=== PATIENT | female | born 1980 | race Hispanic/Latino ===

== ENCOUNTER 2016-05-09 08:32 | Emergency (ER) | payer BC ==
[2016-05-09 09:02] LABS: Basophils % (Auto) 1.1 % (0.0-1.8); Eosinophils % (Auto) 2.1 % (0.0-4.3); Hematocrit 40.5 % (30.3-42.9); Hemoglobin 13.3 gm/dl (10.1-14.3); Mean Corpuscular HGB Conc 33 % (30-34); Mean Corpuscular Hemoglobin 29 pg (28-32); Mean Corpuscular Volume 88 fl (79-97); Platelet Count 288 K/mm3 (140-440); Red Blood Count 4.58 M/mm3 (3.65-5.03); Red Cell Distribution Width 13.5 % (13.2-15.2); White Blood Count 6.1 K/mm3 (4.5-11.0)
[2016-05-09 09:19] LABS: Alanine Aminotransferase 33 units/L (7-56); Albumin 4.6 g/dL (3.9-5); Albumin/Globulin Ratio 1.7 %; Alkaline Phosphatase 106 units/L (35-129); Anion Gap 23 mmol/L; Bilirubin,Total 0.5 mg/dL (0.1-1.2); Blood Urea Nitrogen 7 mg/dL (7-17); Calcium 9.3 mg/dL (8.4-10.2); Carbon Dioxide 22 mmol/L (22-30); Glucose 92 mg/dL (65-100); Lipase 15 units/L (13-60); Potassium 3.8 mmol/L (3.6-5.0); Sodium 138 mmol/L (137-145); Total Protein 7.3 g/dL (6.3-8.2)
[2016-05-09 12:03] LABS: Bilirubin,Urine NEG (Negative); Blood,Urine NEG (Negative); Ketones,Urine 80 mg/dL (Negative); Leukocyte Esterase,Urine TR (Negative); Mucus,Urine 2+ /HPF; Nitrite,Urine NEG (Negative); Urobilinogen,Urine < 2.0 mg/dL (<2.0)
[2016-05-09] MEDS ORDERED: ZOFRAN IV ONE (16:19)
[2016-05-09] MEDS ORDERED: MORPHINE IV ONE ×2 (16:19→18:33)
[2016-05-09] MEDS ORDERED: NACL 0.9% 1000 ML 1,000 ML IV ONE ×2 (16:22→17:50)
--- NOTE | 2016-05-09 16:22 | Emergency Department Report ---
HPI - General Chief Complaint: Abdominal Pain Time Seen by Provider: 05/09/16 15:57 - HPI HPI: This is a 36-year-old female presents to the emergency department with a 2 day history of nausea, vomiting and generalized abdominal pain. On top of this, the patient says that her GJ tube was unable to be flushed and there might be a leak as when she attempted to do so "fluid went everywhere." She receives medications and all feeding through this tube. The surgery manager or surgeon she used to see was Dr. Mckeon, but she can no longer see them regarding the symptoms as "he does not take my insurance." She is not taking anything for symptoms prior to presentation. She has a history of gastroparesis, fibromyalgia, multiple sclerosis. No recent travel or sick contacts at home. ED Past Medical Hx - Past Medical History Previous Medical History?: Yes Hx Hypertension: No Hx Heart Attack/AMI: No Hx Congestive Heart Failure: No Hx Diabetes: No Hx Deep Vein Thrombosis: No Hx Liver Disease: No Hx Renal Disease: No Hx Arthritis: No Hx Seizures: No Hx Kidney Stones: No Hx Asthma: No Hx COPD: No Hx HIV: No Additional medical history: gastroporesis. fibromyalgia. MS - Surgical History Past Surgical History?: Yes Hx Pacemaker: No Additional Surgical History: g-tube. hysterectomy. cyst removal from ovaries - Social History Smoking Status: Never Smoker Substance Use Type: None - Medications Home Medications: Home Medications Medication Instructions Recorded Confirmed Last Taken Type Ondansetron [Zofran ODT TAB] 4 mg PO Q8HR 03/19/16 05/09/16 05/08/16 History Ondansetron [Zofran Odt] 4 mg PO Q8HR PRN #10 tab.rapdis 05/09/16 Unknown Rx Zolpidem [Ambien] 5 mg PO QHS PRN 05/09/16 05/09/16 05/07/16 History ED Review of Systems ROS: Stated complaint: ABD PAIN/TUBE LEAK Other details as noted in HPI Comment: All other systems reviewed and negative Constitutional: denies: chills, fever Eyes: denies: eye pain, eye discharge, vision change ENT: denies: ear pain, throat pain Respiratory: denies: cough, shortness of breath, wheezing Cardiovascular: denies: chest pain, palpitations Gastrointestinal: abdominal pain, nausea, vomiting Genitourinary: denies: urgency, dysuria, discharge Musculoskeletal: denies: back pain, joint swelling, arthralgia Skin: denies: rash, lesions Neurological: denies: headache, weakness, paresthesias Physical Exam - Physical Exam Vital Signs: Vital Signs 05/09/16 05/09/16 05/09/16 08:41 11:24 12:26 Temperature 98.6 F 98.1 F 97.8 F Pulse Rate 100 H 116 H 103 H Respiratory 18 18 18 Rate Blood Pressure 122/78 Blood Pressure 121/66 [Left] Blood Pressure 119/85 121/66 [Right] O2 Sat by Pulse 98 100 100 Oximetry Physical Exam: GENERAL: The patient is well-developed well-nourished. HEENT: Normocephalic. Atraumatic. Extraocular motions are intact. Patient has moist mucous membranes. Pupils equal reactive to light bilaterally. NECK: Supple. Trachea is midline. CHEST/LUNGS: Clear to auscultation. There is no respiratory distress noted. HEART/CARDIOVASCULAR: Regular. There is no tachycardia. There is no gallop rub or murmur. ABDOMEN: Abdomen is soft. Mild tenderness to palpation of the generalized abdomen. No guarding rebound tenderness. There is a GJ tube in place without any surrounding signs of infection and the tube appears to be in appropriate position. There is no abdominal distention. SKIN: There is no rash. Skin is warm and dry. NEURO: The patient is awake, alert, and oriented. The patient is cooperative. The patient has no focal neurologic deficits. The patient has normal speech. MUSCULOSKELETAL: There is no tenderness or deformity. There is no limitation range of motion. There is no evidence of acute injury. ED Course Vital Signs 05/09/16 05/09/16 05/09/16 08:41 11:24 12:26 Temperature 98.6 F 98.1 F 97.8 F Pulse Rate 100 H 116 H 103 H Respiratory 18 18 18 Rate Blood Pressure 122/78 Blood Pressure 121/66 [Left] Blood Pressure 119/85 121/66 [Right] O2 Sat by Pulse 98 100 100 Oximetry ED Medical Decision Making - Lab Data Result diagrams: 05/09/16 08:47 05/09/16 08:47 - Radiology Data Radiology results: image reviewed interpreted by me: Abdominal x-ray shows some hard stool throughout the intestines but there are no signs of intestinal dilation, obstruction or any acute process. G-tube study x-ray shows contrast in the jejunum and stomach showing appropriate position of the GJ tube. - Medical Decision Making This is a 36-year-old female with a history of gastroparesis, among other comorbidities, who presents with a few days of nausea, vomiting, abdominal pain. Patient's labs and unremarkable including no signs of leukocytosis, electrolyte abnormalities, renal insufficiency, glucose abnormalities. She also has normal belly labs including bilirubin, lipase and LFTs. Urinalysis does not show any urinary tract infection but does show 80 ketones showing some signs of dehydration. Patient was given pain medication, Zofran and 2 units of IV fluid resuscitation. The GJ tube was flushed and there was no difficulty or complication or obstruction seen. However the patient is convinced that it is "cut in half". The patient could not be convinced that the GJ tube was functioning appropriately so a G-tube study x-ray was done that showed contrast appropriately into the jejunum and gastric regions without any extravasation. Patient continue last for pain medication, however when the patient is monitored without her knowing from the back of the room she is resting comfortably and does not appear to be in any stress. As soon as she saw ER staff she starts asking for pain medication. I do believe that she has an exacerbation of her gastroparesis but there does not appear to be any significant acute process going on. Patient has not had any vomiting within the emergency department. She gets hydration and attrition from her G-tube. She was discharged home with some Zofran ODT and given referrals for both primary care and gastroenterology. I declined to give her any significant pain medication at this time as she already appears to have some signs of hard stool and increased stool volume and I think continued opiate use will only constipate her and her cause some type of obstruction. However she is encouraged to return to the emergency department with any worsening of her symptoms or any acute distress. - Differential Diagnosis constipation, gastroparesis, colitis, diverticulitis Critical Care Time: No Critical care attestation.: If time is entered above; I have spent that time in minutes in the direct care of this critically ill patient, excluding procedure time. ED Disposition Clinical Impression: Gastroparesis, Chronic pain disorder, Dehydration Abdominal pain Qualifiers: Abdominal location: generalized Qualified Code(s): R10.84 - Generalized abdominal pain Nausea & vomiting Qualifiers: Vomiting type: unspecified Vomiting Intractability: non-intractable Qualified Code(s): R11.2 - Nausea with vomiting, unspecified Disposition: DISCHARGED TO HOME OR SELFCARE Is pt being admited?: No Does the pt Need Aspirin: No Condition: Stable Instructions: Dehydration (ED), Acute Nausea and Vomiting (ED), Abdominal Pain (ED) Additional Instructions: Please follow-up with your primary care doctor and surgery manager. Return to the emergency department with any worsening of your symptoms or any acute distress. Prescriptions: Ondansetron [Zofran Odt] 4 mg PO Q8HR PRN #10 tab.rapdis PRN Reason: Nausea Referrals: PRIMARY CARE, [Primary Care Provider] - 3-5 Days BETH CALERO MD [Staff Physician] - 3-5 Days BERONICA SOUTH MD [Staff Physician] - 3-5 Days [facility] [Outside] - 3-5 Days Time of Disposition: 18:52
--- NOTE | 2016-05-09 18:44 | XRay Report ---
FINAL REPORT EXAM: XR G-TUBE STUDY HISTORY: Questionable malfunctioned g-tube TECHNIQUE: Two views of the abdomen before and after injection of oral contrast into a G-tube. PRIORS: None. FINDINGS: Film 1 shows a G-tube in place with the tip in the proximal stomach. The bowel gas pattern is normal. Film 2 shows opacification of the stomach, duodenum and proximal jejunum with oral contrast. The bones are unremarkable. IMPRESSION: Tip of G-tube is in the stomach. Oral contrast progressed into the proximal jejunum.
[2016-05-09 18:58] VITALS: BP 122/67
--- NOTE | 2016-05-10 09:03 | XRay Report ---
ABDOMEN RADIOGRAPHS INDICATION: Abdominal pain. COMPARISON: None similar. FINDINGS: Frontal supine and upright abdominal radiographs demonstrate cholecystectomy clips, NG tube and extrinsic EKG leads. No definite focal suspicious calcifications, pneumatosis or pneumoperitoneum. Clear left lung base, though imaged lungs overpenetrated on the upright view. Moderate stool throughout the colon and the rectosigmoid/possible constipation. Presumed extrinsic catheter-like density overlies the spine and sacrum. Unremarkable bones. CONCLUSION: Possible constipation without acute abdominal radiographic abnormality with few postsurgical changes noted, as described. Please correlate. Thank you for the opportunity to participate in this patient's care.
== END 2016-05-09 19:07 | disposition home or self-care (01) ==
LOC: ED 08:32
DX: K31.84 Gastroparesis (principal); E86.0 Dehydration; G89.29 Other chronic pain; F45.41 Pain disorder exclusively related to psychological factors; Z90.710 Acquired absence of both cervix and uterus; Z93.1 Gastrostomy status
CPT/HCPCS: 36415; 74000; 74020; 80053; 81001; 83690; 85025; 96361; 96374; 96375; 96376; 99284; J2270; J2405; J7030; Q9963

== ENCOUNTER 2016-05-11 16:54 | Emergency (ER) | payer BC ==
[2016-05-11] MEDS ORDERED: NACL 0.9% 1000 ML 1,000 ML IV ONE ×2 (17:29→22:08)
[2016-05-11 18:41] LABS: Basophils % (Auto) 0.6 % (0.0-1.8); Eosinophils % (Auto) 0.7 % (0.0-4.3); Hemoglobin 12.8 gm/dl (10.1-14.3); Mean Corpuscular HGB Conc 33 % (30-34); Mean Corpuscular Hemoglobin 29 pg (28-32); Mean Corpuscular Volume 89 fl (79-97); Platelet Count 204 K/mm3 (140-440); Red Blood Count 4.41 M/mm3 (3.65-5.03); Red Cell Distribution Width 13.5 % (13.2-15.2); White Blood Count 6.8 K/mm3 (4.5-11.0)
[2016-05-11 18:50] LABS: INR 1.35 (0.87-1.13)
[2016-05-11 18:51] LABS: Partial Thromboplastin Time 34.3 Sec. (24.2-36.6)
[2016-05-11 18:57] LABS: Alanine Aminotransferase 185 units/L (7-56); Albumin 4.1 g/dL (3.9-5); Albumin/Globulin Ratio 1.9 %; Alkaline Phosphatase 97 units/L (35-129); Bilirubin,Total 0.9 mg/dL (0.1-1.2); Blood Urea Nitrogen 6 mg/dL (7-17); Calcium 8.7 mg/dL (8.4-10.2); Carbon Dioxide 25 mmol/L (22-30); Glucose 133 mg/dL (65-100); Lipase 17 units/L (13-60); Total Protein 6.3 g/dL (6.3-8.2)
[2016-05-11 18:58] LABS: Anion Gap 18 mmol/L; Chloride 101.1 mmol/L (98-107); Potassium 3.1 mmol/L (3.6-5.0); Sodium 141 mmol/L (137-145)
[2016-05-11] MEDS ORDERED: MORPHINE IV ONE (22:01)
[2016-05-11] MEDS ORDERED: ZOFRAN IV ONE (22:01)
[2016-05-11] MEDS ORDERED: NACL ONE (22:05)
[2016-05-11] MEDS ORDERED: DILAUDID IV ONE (22:06)
--- NOTE | 2016-05-11 22:07 | Emergency Department Report ---
HPI - General Chief Complaint: GI Bleed Time Seen by Provider: 05/11/16 22:00 - HPI HPI: This is a 36-year-old female presents to the emergency department with the complaint of abdominal pain, nausea, vomiting, diarrhea. Patient mentioned that she also saw some blood in the emesis. Patient was here 2 days ago for similar symptoms. She has a past medical history of fibromyalgia and gastroparesis. She has a past surgical history of cholecystectomy and hysterectomy. The patient's primary care doctor is a Dr. Hernandez in [place] and he is out of the country through the end of the month but she went to see the physician community program assistant there yesterday and was told to come back to the emergency department. She is not been taken anything for symptoms prior to presentation. She was here 2 days ago and was prescribed some Zofran ODT but does not sound like that she has been taking it. No recent travel or sick contacts at home. ED Past Medical Hx - Past Medical History Hx Hypertension: No Hx Heart Attack/AMI: No Hx Congestive Heart Failure: No Hx Diabetes: No Hx Deep Vein Thrombosis: No Hx Liver Disease: No Hx Renal Disease: No Hx Arthritis: No Hx Seizures: No Hx Kidney Stones: No Hx Asthma: No Hx COPD: No Hx HIV: No Additional medical history: gastroporesis. fibromyalgia. MS - Surgical History Hx Pacemaker: No Additional Surgical History: g-tube. hysterectomy. cyst removal from ovaries - Social History Smoking Status: Never Smoker Substance Use Type: None - Medications Home Medications: Home Medications Medication Instructions Recorded Confirmed Last Taken Type Ondansetron [Zofran ODT TAB] 4 mg PO Q8HR 03/19/16 05/09/16 05/08/16 History Ondansetron [Zofran Odt] 4 mg PO Q8HR PRN #10 tab.rapdis 05/09/16 Unknown Rx Zolpidem [Ambien] 5 mg PO QHS PRN 05/09/16 05/09/16 05/07/16 History HYDROcodone/APAP 5-325 [[place] 1 each PO Q6HR PRN #10 tablet 05/12/16 Unknown Rx 5/325] Levofloxacin [Levaquin] 750 mg PO QDAY #7 tablet 05/12/16 Unknown Rx ED Review of Systems ROS: Stated complaint: VOMITING BLOOD Other details as noted in HPI Comment: All other systems reviewed and negative Constitutional: denies: chills, fever Eyes: denies: eye pain, eye discharge, vision change ENT: denies: ear pain, throat pain Respiratory: denies: cough, shortness of breath, wheezing Cardiovascular: denies: chest pain, palpitations Gastrointestinal: abdominal pain, nausea, vomiting, diarrhea Genitourinary: denies: urgency, dysuria, discharge Musculoskeletal: denies: back pain, joint swelling, arthralgia Skin: denies: rash, lesions Neurological: denies: headache, weakness, paresthesias Physical Exam - Physical Exam Vital Signs: Vital Signs 05/11/16 17:25 Temperature 97.4 F L Pulse Rate 115 H Respiratory 18 Rate Blood Pressure 117/82 O2 Sat by Pulse 96 Oximetry Physical Exam: GENERAL: The patient is well-developed well-nourished. HEENT: Normocephalic. Atraumatic. Extraocular motions are intact. Patient has moist mucous membranes. Pupils equal reactive to light bilaterally. NECK: Supple. Trachea is midline. CHEST/LUNGS: Clear to auscultation. There is no respiratory distress noted. HEART/CARDIOVASCULAR: Regular. There is no tachycardia. There is no gallop rub or murmur. ABDOMEN: Abdomen is soft. Mild generalized tenderness to palpation of the abdomen. There is a GJ tube in place. Patient has normal bowel sounds. There is no abdominal distention. SKIN: There is no rash. Skin is warm and dry. NEURO: The patient is awake, alert, and oriented. The patient is cooperative. The patient has no focal neurologic deficits. The patient has normal speech and gait. MUSCULOSKELETAL: There is no tenderness or deformity. There is no evidence of acute injury. ED Course Vital Signs 05/11/16 17:25 Temperature 97.4 F L Pulse Rate 115 H Respiratory 18 Rate Blood Pressure 117/82 O2 Sat by Pulse 96 Oximetry ED Medical Decision Making - Lab Data Result diagrams: 05/11/16 18:23 05/11/16 18:23 - Radiology Data Radiology results: report reviewed CT of the abdomen and pelvis with IV contrast shows a gastrostomy tube that is unchanged. There may be mild generalized thickening of the transverse colon and possible minimal thickening of parts of the descending colon and minimal generalized thickening of the sigmoid colon. These appear new or slightly increased from prior exam. This appeared thickening could be due to lack of distention, however a mild generalized colitis is not excluded. The bowel appears unremarkable otherwise. Considering lack of oral contrast. There is a small 1 cm periumbilical hernia containing fat. Possible small cyst in the left liver unchanged from prior scan. - Medical Decision Making 36-year-old female presents to the emergency department with complaint of some generalized abdominal pain, nausea and vomiting. Patient was just here for similar symptoms. However this time the patient has a few lab abnormalities as now she appears to have some transaminitis. She has stable vitals including being afebrile. There is no leukocytosis. However due to the transaminitis and continued abdominal discomfort, a CT scan of the abdomen and pelvis with IV contrast was done. It came back showing possible mild diffuse colitis but otherwise no acute process. Is given a dose of pain medication and antiemetics and is feeling much better. She did have some mild tachycardia when she first arrived in that resolved with pain control. Patient's colitis will be treated with some Levaquin and the patient will get a prescription for some pain medication. She still has Zofran from her last visit 2 days ago. She was given a referral for primary care and gastroenterology. Patient appears safe for discharge home. She will return to the ER with any worsening of her symptoms or any acute distress. - Differential Diagnosis gastroparesis, colitis, bowel obstruction, diverticulitis Critical Care Time: No Critical care attestation.: If time is entered above; I have spent that time in minutes in the direct care of this critically ill patient, excluding procedure time. ED Disposition Clinical Impression: Transaminitis, Colitis Abdominal pain Qualifiers: Abdominal location: generalized Qualified Code(s): R10.84 - Generalized abdominal pain Nausea & vomiting Qualifiers: Vomiting type: unspecified Vomiting Intractability: non-intractable Qualified Code(s): R11.2 - Nausea with vomiting, unspecified Disposition: DISCHARGED TO HOME OR SELFCARE Is pt being admited?: No Does the pt Need Aspirin: No Condition: Stable Instructions: Abdominal Pain (ED) Additional Instructions: You were seen today for your abdominal pain, nausea and vomiting. You did have a few abnormal labs as your liver function tests, AST and ALT, were elevated above normal. The CT scan showed a few incidental findings that I discussed with you but did not show a source of these abnormal labs. He will need to follow-up with a shactor helper for this reason, as well as your gastroparesis. I given the referrals for both primary care and gastroenterology. You will be started on antibiotics for a mild colitis, inflammation of your colon. You still should have Zofran from your last visit here. I've given use some pain medication. You've been prescribed a medication that is sedating. Therefore this medication cannot be mixed with alcohol, or taken prior to driving, working, or being responsible for children. Return to the emergency department with any intractable vomiting, intractable pain, or any acute distress. Prescriptions: HYDROcodone/APAP 5-325 [[place] 5/325] 1 each PO Q6HR PRN #10 tablet PRN Reason: Pain Levofloxacin [Levaquin] 750 mg PO QDAY #7 tablet Referrals: GERARDO CABEZAS MD [Primary Care Provider] - 3-5 Days JG HALL MD [Staff Physician] - 3-5 Days BERONICA SOUTH MD [Staff Physician] - 3-5 Days Time of Disposition: 01:16
--- NOTE | 2016-05-11 23:57 | Cat Scan Report ---
FINAL REPORT PROCEDURE: CT ABDOMEN PELVIS W CON TECHNIQUE: Computerized axial tomography of the abdomen and pelvis was performed after the IV injection of iodinated nonionic contrast. Oral contrast was not given HISTORY: Abd pain, hematemesis COMPARISON: Prior abdomen and pelvic CT scan of March 18, 2016 FINDINGS: Visualized lower thorax: There is minimal atelectasis in both lung bases. Liver: There is an oval well-defined roughly 1.1 centimeter hypodensity in the left lobe of liver unchanged from prior exam. This measures close to fluid density and could be a cyst but is nonspecific. A more subtle oval hypodensity in the anterior liver to the right of the falciform ligament noted. This is too small and subtle to characterize and therefore remains nonspecific. However it is unchanged from the prior exam and considering its typical location this could be an incidental area of focal fatty infiltration.. Spleen: Normal size and attenuation. Gallbladder and biliary system: Cholecystectomy. Pancreas: Normal. Adrenals: Normal. Kidneys: Normal. GI tract: A gastrostomy tube noted in the stomach extending into the duodenal and proximal jejunum similar to prior exam. The appendix is seen and appears normal. There is mild generalized thickening of the transverse colon and parts of the descending colon and sigmoid colon which is new or slightly greater than on prior exam. This could be due to lack of distention but I cannot exclude a mild generalize colitis. The bowel appears unremarkable otherwise when considering lack of oral contrast Lymph nodes and mesentery: Normal. Vasculature: Normal. Bladder: Normal. Reproductive organs: Normal. Peritoneum: No free fluid. Musculoskeletal structures: No significant abnormality. Other: There is a 1.0 centimeter periumbilical hernia containing fat only.. IMPRESSION: 1. Gastrostomy tube noted, unchanged. 2. There may be mild generalized thickening of the transverse colon and possible minimal thickening of parts of the descending colon and minimal generalized thickening of the sigmoid colon. These appear new or slightly increased from prior exam. This apparent thickening could be due to lack of distention. However a mild generalize colitis is not excluded. 3. The bowel appears unremarkable otherwise when considering lack of oral contrast. 4. There is a small 1.0 centimeter periumbilical hernia containing fat only. 5. Possible small cyst in left liver, unchanged from prior scan.
[2016-05-12] MEDS ORDERED: LEVAQUIN 750MG/150ML 750 MG/150 ML BAG IV ONE (00:19)
[2016-05-12] MEDS ORDERED: DILAUDID IV ONE (01:04)
[2016-05-12 01:25] VITALS: BP 111/73
== END 2016-05-12 01:49 | disposition home or self-care (01) ==
LOC: ED 16:54
DX: K52.9 Noninfective gastroenteritis and colitis, unspecified (principal); R74.0 Nonspecific elevation of levels of transaminase and lactic acid dehydrogenase [LDH]; Z90.710 Acquired absence of both cervix and uterus
CPT/HCPCS: 36415; 74177; 80053; 83690; 85025; 85610; 85730; 86850; 86900; 86901; 96361; 96365; 96366; 96375; 96376; 99284; J1170; J1956; J2405; J7030; Q9967

== ENCOUNTER 2017-02-27 11:31 | Inpatient (IN) | payer BC, MEDICAID ==
[2017-02-27 12:04] LABS: Hematocrit 42.3 % (30.3-42.9); Hemoglobin 13.8 gm/dl (10.1-14.3); Mean Corpuscular HGB Conc 33 % (30-34); Mean Corpuscular Hemoglobin 29 pg (28-32); Mean Corpuscular Volume 89 fl (79-97); Platelet Count 285 K/mm3 (140-440); Red Blood Count 4.76 M/mm3 (3.65-5.03); Red Cell Distribution Width 13.3 % (13.2-15.2); White Blood Count 5.3 K/mm3 (4.5-11.0)
[2017-02-27 12:10] LABS: Basophils % (Auto) 0.8 % (0.0-1.8); Eosinophils % (Auto) 0.9 % (0.0-4.3)
[2017-02-27 12:23] LABS: Anion Gap 22 mmol/L; BUN/Creatinine Ratio 20; Blood Urea Nitrogen 16 mg/dL (7-17); Calcium 9.5 mg/dL (8.4-10.2); Carbon Dioxide 23 mmol/L (22-30); Chloride 97.2 mmol/L (98-107); Glucose 112 mg/dL (65-100); Potassium 4.5 mmol/L (3.6-5.0); Sodium 138 mmol/L (137-145)
[2017-02-27] MEDS ORDERED: ZOFRAN IV ONE (14:34)
[2017-02-27] MEDS ORDERED: PLAVIX PO ONE (14:34)
[2017-02-27] MEDS ORDERED: MORPHINE IV ONE (14:34)
[2017-02-27] MEDS ORDERED: NITRO-BID 2% TP ONE (14:34)
--- NOTE | 2017-02-27 14:38 | Emergency Department Report ---
HPI - General Chief Complaint: Chest Pain Time Seen by Provider: 02/27/17 14:22 - HPI HPI: Room 1 The patient is a 37-year-old female presenting with a chief complaint chest pain and palpitations. The patient states for 1 month she has had intermittent tachycardia associated with left-sided chest pain. Patient describes chest pain as stabbing in nature and intermittent for one month. However the patient states for the past 2 days the pain has been constant. Patient was shortness of breath, diaphoresis and nausea without vomiting associated with her chest pain. The patient currently gives her pain score of 7/10. The patient states she's never had a stress test or cardiac catheterization. 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 Allen, was told to come to the ED for admission Location: Chest Duration: Intermittent times one month Quality: Sharp Severity: 7/10 Modifying factors: [see above] Context: [see above] Mode of transportation: [not driving] ED Past Medical Hx - Past Medical History Previous Medical History?: Yes Additional medical history: gastroporesis. fibromyalgia - Surgical History Past Surgical History?: Yes Hx Pacemaker: No Additional Surgical History: g-tube. hysterectomy. cyst removal from ovaries - Social History Smoking Status: Former Smoker (none 10 years) Substance Use Type: None (denies illicit drug use), Prescribed - Medications Home Medications: Home Medications Medication Instructions Recorded Confirmed Last Taken Type Amitriptyline [Elavil] 10 mg PO QHS 02/27/17 02/27/17 02/26/17 History Calcium Carb/Magnesium Hydrox 1 each PO PRN 02/27/17 02/27/17 02/26/17 History [Rolaids Chewable Tablet] Ondansetron [Zofran Odt] 8 mg PO Q8HR PRN 02/27/17 02/27/17 02/26/17 History Oxycodone HCl/Acetaminophen 1 each PO TID 02/27/17 02/27/17 02/26/17 History [Percocet 7.5/325 mg] ED Review of Systems ROS: Stated complaint: CHEST PAIN Other details as noted in HPI Constitutional: diaphoresis Respiratory: shortness of breath Cardiovascular: chest pain, palpitations Gastrointestinal: nausea. denies: vomiting Physical Exam - Physical Exam Vital Signs: Vital Signs 02/27/17 02/27/17 02/27/17 11:36 12:47 13:00 Temperature 97.8 F Pulse Rate 151 H 125 H 131 H Respiratory 22 11 L 17 Rate Blood Pressure 112/87 125/83 O2 Sat by Pulse 99 98 89 Oximetry 02/27/17 02/27/17 13:31 14:00 Temperature Pulse Rate 118 H 113 H Respiratory 28 H 26 H Rate Blood Pressure 125/83 104/68 O2 Sat by Pulse 98 Oximetry Physical Exam: GENERAL: The patient is well-developed well-nourished female lying on stretcher not appearing to be in acute distress. [] HEENT: Normocephalic. Atraumatic. Extraocular motions are intact. Patient has moist mucous membranes. NECK: Supple. Trachea midline CHEST/LUNGS: Clear to auscultation. There is no respiratory distress noted. HEART/CARDIOVASCULAR: Regular. There is no tachycardia. There is no gallop rub or murmur. ABDOMEN: Abdomen is soft, nontender. Patient has normal bowel sounds. There is no abdominal distention. SKIN: There is no rash. There is no diaphoresis. NEURO: The patient is awake, alert, and oriented. The patient is cooperative. The patient has normal speech MUSCULOSKELETAL: There is no evidence of acute injury. ED Course Vital Signs 02/27/17 02/27/17 02/27/17 11:36 12:47 13:00 Temperature 97.8 F Pulse Rate 151 H 125 H 131 H Respiratory 22 11 L 17 Rate Blood Pressure 112/87 125/83 O2 Sat by Pulse 99 98 89 Oximetry 02/27/17 02/27/17 13:31 14:00 Temperature Pulse Rate 118 H 113 H Respiratory 28 H 26 H Rate Blood Pressure 125/83 104/68 O2 Sat by Pulse 98 Oximetry ED Medical Decision Making - Lab Data Result diagrams: 02/27/17 11:51 02/27/17 11:51 Laboratory Tests 02/27/17 02/27/17 11:51 11:51 WBC 5.3 RBC 4.76 Hgb 13.8 Hct 42.3 MCV 89 MCH 29 MCHC 33 RDW 13.3 Plt Count 285 Lymph % (Auto) 18.3 [place] % (Auto) 6.7 Eos % (Auto) 0.9 Baso % (Auto) 0.8 Lymph # 0.9 L [place] # 0.3 Eos # 0.0 Baso # 0.0 Seg Neutrophils % 73.3 H Seg Neutrophils # 3.7 Sodium 138 Potassium 4.5 Chloride 97.2 L Carbon Dioxide 23 Anion Gap 22 BUN 16 Creatinine 0.8 Estimated GFR > 60 BUN/Creatinine Ratio 20 Glucose 112 H Calcium 9.5 Troponin T < 0.010 - EKG Data -: EKG Interpreted by Me EKG shows normal: sinus rhythm Rate: tachycardia (124 bpm) - EKG Data When compared to previous EKG there are: previous EKG unavailable Interpretation: other (no ischemic changes seen) - Radiology Data Radiology results: report reviewed (CT chest), image reviewed (chest x-ray, CT chest) interpreted by me: Chest x-ray-no focal infiltrate, no pneumothorax CTA CHEST: HISTORY: chest pain. COMPARISON: none. TECHNIQUE: Helical CT in 1.25mm intervals following IV contrast. Pulmonary embolus protocol. Sagittal and coronal reformatted images. Rotational MIP images. FINDINGS: Contrast bolus is satisfactory. No pulmonary embolus is identified. Thyroid gland: Normal. Tracheobronchial tree: Normal. Esophagus: Normal. Heart: Normal. Pericardium: Normal. Mediastinum: Normal. Lung [place]: normal. Pleural Spaces: Normal. Musculoskeletal: Normal. IMPRESSION: No evidence for pulmonary embolus. Unremarkable CT chest with contrast. Transcribed By: TTR Dictated By: IRMA DELUCA JR, MD Electronically Authenticated By: IRAM DELUCA JR, MD Signed Date/Time: 02/27/171547 DD/ 46 TD/TT: 02/27/171547 - Differential Diagnosis ACS, PE, pericarditis Critical care attestation.: If time is entered above; I have spent that time in minutes in the direct care of this critically ill patient, excluding procedure time. ED Disposition Clinical Impression: Chest pain Disposition: - OP ADMIT IP TO THIS HOSP Is pt being admited?: Yes Does the pt Need Aspirin: No Condition: Fair Instructions: Chest Pain (ED) Referrals: PRIMARY CARE, [Primary Care Provider] - 3-5 Days Time of Disposition: 16:05 (hospitalist paged (Dr Youngblood))
--- NOTE | 2017-02-27 15:17 | XRay Report ---
AP CHEST: HISTORY: chest pain AP view of the chest demonstrates a normal mediastinal and cardiac contour with clear lungs and normal bony and soft tissue structures. IMPRESSION: Unremarkable AP chest.
--- NOTE | 2017-02-27 15:42 | Consultation ---
History of Present Illness Consult date: 02/27/17 Requesting physician: TOM MEDINA Consult reason: chest pain History of present illness: The patient is a 37-year-old female with a past medical history significant for fibromyalgia, gastroparesis and anxiety. She was seen in our office for the first time today by Dr. Ronak Allen. She presented with c/o chest pain and palpitations for the past 1 month. She describes her chest pain as a nonexertional left-sided chest pressure which has been intermittently present for the past month and which became constant 2 days ago. The chest pain is associated with some left arm numbness and tingling. She has also been experiencing palpitations associated with SOB for the past 1 month. She also has some dizziness with positional changes. She also c/o some nausea and vomiting which she states are unchanged from her baseline. She denies any diaphoresis or syncope. She denies any prior cardiac issues or cardiac evaluation. Past History Past Medical History: other (fibromyalgia; gastroparesis ) Social history: denies: smoking, alcohol abuse, prescription drug abuse Medications and Allergies Allergies Allergy/AdvReac Type Severity Reaction Status Date / Time haloperidol [From Haldol] Allergy Unknown Verified 05/11/16 17:28 haloperidol lactate Allergy Unknown Verified 05/11/16 17:28 [From Haldol] ibuprofen Allergy Unknown Verified 05/11/16 17:28 oseltamivir phosphate Allergy Nausea Verified 05/11/16 17:28 [From Tamiflu] metoclopramide HCl AdvReac Shortness Verified 05/11/16 17:28 [From Reglan] of Breath dairy AdvReac Unknown Uncoded 05/11/16 17:28 Home Medications Medication Instructions Recorded Confirmed Last Taken Type Amitriptyline [Elavil] 10 mg PO QHS 02/27/17 02/27/17 02/26/17 History Calcium Carb/Magnesium Hydrox 1 each PO PRN 02/27/17 02/27/17 02/26/17 History [Rolaids Chewable Tablet] Ondansetron [Zofran Odt] 8 mg PO Q8HR PRN 02/27/17 02/27/17 02/26/17 History Oxycodone HCl/Acetaminophen 1 each PO TID 02/27/17 02/27/17 02/26/17 History [Percocet 7.5/325 mg] Review of Systems Constitutional: no weight loss, no weight gain, no fever, no chills, no sweats Ears, nose, mouth and throat: no ear pain, no nose pain, no sinus pressure, no sinus pain Cardiovascular: chest pain, palpitations, rapid/irregular heart beat, shortness of breath, no orthopnea, no edema, no syncope, no lightheadedness, no paroxysmal nocturnal dyspnea, no high blood pressure, no leg edema Respiratory: shortness of breath, no cough, no congestion, no wheezing, no pain on inspiration Gastrointestinal: nausea, no abdominal pain, no vomiting, no diarrhea, no constipation, no change in bowel habits Genitourinary Female: no pelvic pain, no flank pain, no dysuria, no urinary frequency, no urgency Musculoskeletal: no neck stiffness, no neck pain, no shooting arm pain, no arm numbness/tingling, no low back pain, no shooting leg pain, no leg numbness/ tingling, no redness of joints Integumentary: no rash, no pruritis, no redness, no sores, no wounds Neurological: numbness (LUE), tingling (LUE), no head injury, no paralysis, no weakness, no parathesias, no seizures, no syncope Psychiatric: anxiety Endocrine: no cold intolerance, no heat intolerance Hematologic/Lymphatic: no easy bruising, no easy bleeding, no lymphadenopathy Allergic/Immunologic: no urticaria, no wheezing, no persistent infections Physical Examination Vital Signs Temp Pulse Resp BP Pulse Ox 97.8 F 151 H 22 112/87 99 02/27/17 11:36 02/27/17 11:36 02/27/17 11:36 02/27/17 11:36 02/27/17 11:36 General appearance: no acute distress HEENT: Positive: PERRL, Normocephaly, Mucus Membranes Moist Neck: Positive: neck supple, trachea midline Cardiac: Positive: Regular Rhythm, S1/S2, Tachycardia Lungs: Positive: clear to auscultation Neuro: Positive: Grossly Intact Abdomen: Positive: Soft. Negative: Tender Skin: Positive: Clear. Negative: Rash, Wound Musculoskeletal: No Fluid Collection, No Pain, Normal Range of Motion Extremities: Absent: edema Results 02/27/17 11:51 02/27/17 11:51 CBC 12/06/17 Range/Units 11:51 WBC 5.3 (4.5-11.0) K/mm3 RBC 4.76 (3.65-5.03) M/mm3 Hgb 13.8 (10.1-14.3) gm/dl Hct 42.3 (30.3-42.9) % Plt Count 285 (140-440) K/mm3 Lymph # 0.9 L (1.2-5.4) K/mm3 [place] # 0.3 (0.0-0.8) K/mm3 Eos # 0.0 (0.0-0.4) K/mm3 Baso # 0.0 (0.0-0.1) K/mm3 Comprehensive Metabolic Panel 02/27/17 Range/Units 11:51 Sodium 138 (137-145) mmol/L Potassium 4.5 (3.6-5.0) mmol/L Chloride 97.2 L (98-107) mmol/L Carbon Dioxide 23 (22-30) mmol/L BUN 16 (7-17) mg/dL Creatinine 0.8 (0.7-1.2) mg/dL Glucose 112 H (65-100) mg/dL Calcium 9.5 (8.4-10.2) mg/dL - Imaging and Cardiology Echo: pending EKG: report reviewed, image reviewed EKG interpretations - Telemetry EKG Rhythm: Sinus Tachycardia - EKG Sinus rhythms and dysrhythmias: sinus tachycardia Assessment and Plan Chest CTA negative for PE, NAF. Obtain echo. Obtain thyroid profile. Obtain orthostatics. Plan for lexiscan MPI stress test in AM. The patient has been seen in conjunction with Dr. Owen who agrees with the assessment and plan of care. - Patient Problems (1) Chest pain Current Visit: Yes Status: Acute (2) Palpitations Current Visit: Yes Status: Acute (3) Dyspnea Current Visit: Yes Status: Acute (4) Sinus tachycardia Current Visit: Yes Status: Acute (5) Dizziness Current Visit: Yes Status: Acute
--- NOTE | 2017-02-27 15:52 | Cat Scan Report ---
CTA CHEST: HISTORY: chest pain. COMPARISON: none. TECHNIQUE: Helical CT in 1.25mm intervals following IV contrast. Pulmonary embolus protocol. Sagittal and coronal reformatted images. Rotational MIP images. FINDINGS: Contrast bolus is satisfactory. No pulmonary embolus is identified. Thyroid gland: Normal. Tracheobronchial tree: Normal. Esophagus: Normal. Heart: Normal. Pericardium: Normal. Mediastinum: Normal. Lung [place]: normal. Pleural Spaces: Normal. Musculoskeletal: Normal. IMPRESSION: No evidence for pulmonary embolus. Unremarkable CT chest with contrast.
--- NOTE | 2017-02-27 17:41 | History and Physical Report ---
History of Present Illness Chief complaint: My chest hurts, and my heart is beating fast History of present illness: 37 YO Female with Fibromyalgia, Gastroparesis presents to ED for evaluation. Pt states that she has been experiencing chest pain and a rapid heartbeat for the past month, but symptoms have become more frequent over the past 2 days with worsening pain in her chest. Pain is 7/10, Sharp, Intermittent, associated with shortness of breath, diaphoresis, and nausea. No worsening with exertion, or relief with rest. The patient was seen in her cardiologists office today, and was instructed to present to ED for further evaluation. Pt seen and evaluated in ED and found to have tachycardia, and symptoms suggestive of ACS. Cardiology team consulted in ED. Past History Past Medical History: other (fibromyalgia; gastroparesis ) Past Surgical History: hysterectomy, Other (G tube) Social history: . denies: smoking, alcohol abuse, prescription drug abuse Family history: no significant family history (reviewed) Medications and Allergies Allergies Allergy/AdvReac Type Severity Reaction Status Date / Time haloperidol [From Haldol] Allergy Unknown Verified 05/11/16 17:28 haloperidol lactate Allergy Unknown Verified 05/11/16 17:28 [From Haldol] ibuprofen Allergy Unknown Verified 05/11/16 17:28 oseltamivir phosphate Allergy Nausea Verified 05/11/16 17:28 [From Tamiflu] metoclopramide HCl AdvReac Shortness Verified 05/11/16 17:28 [From Reglan] of Breath dairy AdvReac Unknown Uncoded 02 17:28 Home Medications Medication Instructions Recorded Confirmed Last Taken Type Amitriptyline [Elavil] 10 mg PO QHS 02/27/17 02/27/17 02/26/17 History Calcium Carb/Magnesium Hydrox 1 each PO PRN 02/27/17 02/27/17 02/26/17 History [Rolaids Chewable Tablet] Ondansetron [Zofran Odt] 8 mg PO Q8HR PRN 02/27/17 02/27/17 02/26/17 History Oxycodone HCl/Acetaminophen 1 each PO TID 02/27/17 02/27/17 02/26/17 History [Percocet 7.5/325 mg] Active Meds: Active Medications Sodium Chloride (Nacl 0.9% 500 Ml) 500 mls @ 50 mls/hr IV DIRECT REBLE Review of Systems Constitutional: no weight loss, no weight gain, no fever, no chills Ears, nose, mouth and throat: no ear pain, no ear discharge, no tinnitis, no decreased hearing, no nose pain, no nasal congestion, no nasal discharge Breasts: no change in shape, no swelling, no mass Cardiovascular: chest pain, palpitations, no orthopnea, no edema, no syncope, no lightheadedness Respiratory: no cough, no cough with sputum, no excessive sputum, no hemoptysis , no shortness of breath Gastrointestinal: no abdominal pain, no nausea, no vomiting, no diarrhea, no constipation Genitourinary Female: no pelvic pain, no flank pain, no menorrhagia, no dysuria Rectal: no pain, no incontinence, no bleeding Musculoskeletal: no neck stiffness, no neck pain, no shooting arm pain, no arm numbness/tingling Integumentary: no rash, no pruritis, no redness, no sores, no wounds, no jaundice, no boils Neurological: no head injury, no transient paralysis, no paralysis, no weakness , no parathesias Psychiatric: no anxiety, no memory loss, no change in sleep habits, no sleep disturbances, no insomnia, no hypersomnia, no change in appetite, no change in libido, no suicidal ideation Endocrine: no cold intolerance, no heat intolerance, no polyphagia, no excessive thirst, no polydipsia, no polyuria, no nocturia Hematologic/Lymphatic: no easy bruising, no easy bleeding Allergic/Immunologic: no urticaria, no allergic rhinitis, no wheezing Exam - Constitutional Vitals: Temp Pulse Resp BP Pulse Ox 97.8 F 117 H 26 H 104/68 98 02/27/17 11:36 02/27/17 14:53 02/27/17 14:00 02/27/17 14:53 02/27/17 13:31 General appearance: Present: mild distress - EENT Eyes: Present: PERRL ENT: hearing intact, clear oral mucosa - Neck Neck: Present: supple, normal ROM - Respiratory Respiratory effort: normal Respiratory: bilateral: CTA - Cardiovascular Heart Sounds: Present: S1 & S2. Absent: rub, click - Extremities Extremities: pulses symmetrical, No edema Peripheral Pulses: within normal limits - Abdominal General gastrointestinal: Present: soft, non-tender, non-distended, normal bowel sounds Female genitourinary: Present: normal - Integumentary Integumentary: Present: clear, warm, dry - Musculoskeletal Musculoskeletal: gait normal, strength equal bilaterally - Psychiatric Psychiatric: appropriate mood/affect, intact judgment & insight - Neurologic Neurologic: CNII-XII intact, moves all extremities Results - Labs CBC & Chem 7: 02/27/17 11:51 02/27/17 11:51 Labs: Abnormal lab results 02/27/17 02/27/17 Range/Units 11:51 11:51 Lymph # 0.9 L (1.2-5.4) K/mm3 Seg Neutrophils % 73.3 H (40.0-70.0) % Chloride 97.2 L (98-107) mmol/L Glucose 112 H (65-100) mg/dL Assessment and Plan - Patient Problems (1) ACS (acute coronary syndrome) Current Visit: Yes Status: Acute Plan to address problem: Cardiology consulted, Admit to telemetry, morphine, supplemental oxygen, nitro tabs, aspirin, Echo, stress test. (2) Fibromyalgia Current Visit: Yes Status: Acute Plan to address problem: Pain control, supportive care, (3) Anxiety disorder Current Visit: Yes Status: Acute Plan to address problem: xanax prn, (4) Palpitations Current Visit: Yes Status: Acute Plan to address problem: Admit to telemetry, echo, supportive care, stress test in AM. (5) DVT prophylaxis Current Visit: Yes Status: Acute
[2017-02-27] MEDS ORDERED: TYLENOL PO PRN (17:55)
[2017-02-27] MEDS ORDERED: ZOFRAN IV PRN (17:55)
[2017-02-27] MEDS ORDERED: DULCOLAX PR PRN (17:55)
[2017-02-27] MEDS ORDERED: MILK OF MAGNESIA PO PRN (17:55)
[2017-02-27] MEDS ORDERED: PROVENTIL IH PRN (17:55)
[2017-02-27] MEDS ORDERED: ZOFRAN ODT PO PRN (17:56)
[2017-02-27] MEDS ORDERED: ROXICODONE PO SCH (20:00)
[2017-02-27] MEDS ORDERED: PERCOCET 5/325 PO SCH (20:00)
[2017-02-27] MEDS ORDERED: NON-FORMULARY (Oxycodone Hcl/Acetaminophen [Percocet 7.5/325 Mg] 1 EACH) PO SCH (20:00)
[2017-02-27] MEDS ORDERED: ROXICODONE ONE (20:46)
[2017-02-27] MEDS ORDERED: PERCOCET 5/325 ONE (20:46)
[2017-02-27] MEDS ORDERED: NACL 0.9% 500 ML 500 ML ONE (21:07)
[2017-02-27] MEDS: NACL 0.9% 500 ML 500 ML IV SCH (21:15)
[2017-02-27] MEDS ORDERED: ELAVIL PO SCH (22:00)
[2017-02-28] MEDS: NACL 0.9% 500 ML 500 ML IV SCH (00:19)
[2017-02-28] MEDS: ROXICODONE PO SCH ×2 (05:41→14:46)
[2017-02-28] MEDS: PERCOCET 5/325 PO SCH ×2 (05:43→14:47)
[2017-02-28 07:20] LABS: Anion Gap 19 mmol/L; BUN/Creatinine Ratio 31; Blood Urea Nitrogen 22 mg/dL (7-17); Calcium 8.6 mg/dL (8.4-10.2); Carbon Dioxide 26 mmol/L (22-30); Glucose 103 mg/dL (65-100); Potassium 3.8 mmol/L (3.6-5.0); Sodium 138 mmol/L (137-145)
[2017-02-28] MEDS ORDERED: LEXISCAN IV ONE ×2 (08:20)
[2017-02-28] MEDS ORDERED: NACL 0.9% 1000 ML 1,000 ML IV SCH (10:00)
--- NOTE | 2017-02-28 11:44 | Progress Note ---
Assessment and Plan s/p lexiscan MPI stress test this AM which was negative for ischemia. Echo reviewed - EF 50-55%. Cont IVF. Currently stable cardiac status. Pt may discharge home following completion of 500mL IVF. Follow up in our [place] office with Dr. Ronak Allen on 03/06/2017 @ 1:00PM. The patient has been seen in conjunction with Dr. Owen who agrees with the assessment and plan of care. - Patient Problems (1) Chest pain Current Visit: Yes Status: Acute (2) Palpitations Current Visit: Yes Status: Acute (3) Dyspnea Current Visit: Yes Status: Acute (4) Sinus tachycardia Current Visit: Yes Status: Acute (5) Dizziness Current Visit: Yes Status: Acute Subjective Date of service: 02/28/17 Principal diagnosis: chest pain; ST Interval history: pt resting in bed, s/p stress test this AM. still with c/o atypical chest pain, palpitations and dizziness with standing. Tele reviewed - ST overnight, HR as high as 150s. Objective Last Vital Signs Temp 97.5 F L 02/28/17 05:32 Pulse 118 H 02/28/17 05:32 Resp 20 02/28/17 05:32 BP 100/60 02/28/17 05:32 Pulse Ox 99 02/28/17 05:32 - Physical Examination General: Appears Well HEENT: Positive: PERRL, Normocephaly, Mucus Membranes Moist Neck: Positive: neck supple, trachea midline Cardiac: Positive: Regular Rhythm, S1/S2, Tachycardia Lungs: Positive: clear to auscultation Neuro: Positive: Grossly Intact Abdomen: Positive: Soft. Negative: Tender Skin: Positive: Clear. Negative: Rash, Wound Musculoskeletal: No Fluid Collection, No Pain, Normal Range of Motion Extremities: Absent: edema - Labs and Meds CBC 02/27/17 Range/Units 11:51 WBC 5.3 (4.5-11.0) K/mm3 RBC 4.76 (3.65-5.03) M/mm3 Hgb 13.8 (10.1-14.3) gm/dl Hct 42.3 (30.3-42.9) % Plt Count 285 (140-440) K/mm3 Lymph # 0.9 L (1.2-5.4) K/mm3 [place] # 0.3 (0.0-0.8) K/mm3 Eos # 0.0 (0.0-0.4) K/mm3 Baso # 0.0 (0.0-0.1) K/mm3 Comprehensive Metabolic Panel 02/27/17 02/28/17 Range/Units 11:51 06:13 Sodium 138 138 (137-145) mmol/L Potassium 4.5 3.8 (3.6-5.0) mmol/L Chloride 97.2 L 97.0 L (98-107) mmol/L Carbon Dioxide 23 26 (22-30) mmol/L BUN 16 22 H (7-17) mg/dL Creatinine 0.8 0.7 (0.7-1.2) mg/dL Glucose 112 H 103 H (65-100) mg/dL Calcium 9.5 8.6 (8.4-10.2) mg/dL - Imaging and Cardiology EKG: report reviewed, image reviewed Echo: pending - EKG Sinus rhythms and dysrhythmias: sinus tachycardia
[2017-02-28 11:55] VITALS: BP 84/60
[2017-02-28] MEDS ORDERED: NACL 0.9% 500 ML 500 ML IV ONE (13:12)
--- NOTE | 2017-02-28 13:28 | Progress Note ---
Assessment and Plan Assessment and plan: 1. Chest pain EKG with no ischemic changes, cardiac enzymes negative, stress test negative for ischemia, normal echocardiogram with EF 50-55% Nonspecific, likely related with anxiety 2. Sinus tachycardia EKG and tele with ST Check orthostatics Give 500 mL NS then continue maintenance rate 3. Dizziness BP borderline low See above discussion 4. ?Fibromyalgia On amitriptyline at home 5. ?Anxiety disorder History Interval history: feeling better after receiving ivf Hospitalist Physical - Constitutional Vitals: Temp Pulse Resp BP Pulse Ox 97.5 F L 125 H 20 84/60 99 02/28/17 05:32 02/28/17 08:38 02/28/17 05:32 02/28/17 08:38 02/28/17 05:32 General appearance: Present: no acute distress - EENT Eyes: Present: PERRL, EOM intact. Absent: scleral icterus, conjunctival injection - Neck Neck: Present: supple, normal ROM. Absent: masses or JVD - Respiratory Respiratory effort: normal Respiratory: bilateral: CTA, negative: rhonchi, wheezing - Cardiovascular Rhythm: other (tachycardic) Heart Sounds: Present: S1 & S2. Absent: systolic murmur - Extremities Extremities: no ischemia - Abdominal General gastrointestinal: soft, non-tender, non-distended, normal bowel sounds - Psychiatric Psychiatric: cooperative - Neurologic Neurologic: CNII-XII intact, no focal deficits Results - Labs CBC & Chem 7: 02/27/17 11:51 02/28/17 06:13 Labs: Laboratory Last Values WBC 5.3 K/mm3 (4.5-11.0) 02/27/17 11:51 RBC 4.76 M/mm3 (3.65-5.03) 02/27/17 11:51 Hgb 13.8 gm/dl (10.1-14.3) 02/27/17 11:51 Hct 42.3 % (30.3-42.9) 02/27/17 11:51 MCV 89 fl (79-97) 02/27/17 11:51 MCH 29 pg (28-32) 02/27/17 11:51 MCHC 33 % (30-34) 02/27/17 11:51 RDW 13.3 % (13.2-15.2) 02/27/17 11:51 Plt Count 285 K/mm3 (140-440) 02/27/17 11:51 Lymph % (Auto) 18.3 % (13.4-35.0) 02/27/17 11:51 [place] % (Auto) 6.7 % (0.0-7.3) 02/27/17 11:51 Eos % (Auto) 0.9 % (0.0-4.3) 02/27/17 11:51 Baso % (Auto) 0.8 % (0.0-1.8) 02/27/17 11:51 Lymph # 0.9 K/mm3 (1.2-5.4) L 02/27/17 11:51 [place] # 0.3 K/mm3 (0.0-0.8) 02/27/17 11:51 Eos # 0.0 K/mm3 (0.0-0.4) 02/27/17 11:51 Baso # 0.0 K/mm3 (0.0-0.1) 02/27/17 11:51 Seg Neutrophils % 73.3 % (40.0-70.0) H 02/27/17 11:51 Seg Neutrophils # 3.7 K/mm3 (1.8-7.7) 02/27/17 11:51 Sodium 138 mmol/L (137-145) 02/28/17 06:13 Potassium 3.8 mmol/L (3.6-5.0) 02/28/17 06:13 Chloride 97.0 mmol/L (98-107) L 02/28/17 06:13 Carbon Dioxide 26 mmol/L (22-30) 02/28/17 06:13 Anion Gap 19 mmol/L 02/28/17 06:13 BUN 22 mg/dL (7-17) H 02/28/17 06:13 Creatinine 0.7 mg/dL (0.7-1.2) 02/28/17 06:13 Estimated GFR > 60 ml/min 02/28/17 06:13 BUN/Creatinine Ratio 31 % 02/28/17 06:13 Glucose 103 mg/dL (65-100) H 02/28/17 06:13 Calcium 8.6 mg/dL (8.4-10.2) 02/28/17 06:13 Troponin T < 0.010 ng/mL (0.00-0.029) 02/27/17 17:02 TSH 3.740 mlU/mL (0.270-4.200) 02/27/17 17:02 Free T4 1.33 ng/dL (0.76-1.46) 02/27/17 17:02
--- NOTE | 2017-02-28 16:29 | Discharge Summary ---
Providers - Providers Date of Admission: 02/27/17 17:55 Date of discharge: 02/28/17 Attending physician: MICHELLE SALAZAR 02/27/17 14:49 Consult to Physician [CONS] Urgent Consulting Provider: JACKSON BELLAMY Reason For Exam: chest pain Place consult to:: OPPRTUNITY Notified:: y Primary care physician: TOPPER PACKER Hospitalization Reason for admission: chest pain, palpitations Condition: Stable Pertinent studies: CXT CTA chest ECHO Stress test Hospital course: Agent is a 37 years old female with fibromyalgia, anxiety disorder who presented to the hospital with 1 month history of intermittent chest pain, palpitations, dizziness. Cardiology consulted and underwent ischemic evaluation which was negative. Throat to have orthostatic hypotension with subsequent sinus tachycardia. Received IV fluids and symptoms improved. Discharged in stable condition with PCP; advised to drink plenty of water. Discharge diagnoses: 1. Chest pain - nonspecific, likely related to anxiety/palpitations 2. Orthostatic hypotension with subsequent sinus tachycardia 3. Sinus tachycardia 4. ?Fibromyalgia 5. ?Anxiety disorder Disposition: DC-01 TO HOME OR SELFCARE Time spent for discharge: 35 min Core Measure Documentation - Palliative Care Palliative Care/ Comfort Measures: Not Applicable - Core Measures Any of the following diagnoses?: none Exam - Constitutional Vitals: Temp Pulse Resp BP Pulse Ox 97.5 F L 125 H 20 84/60 99 02/28/17 05:32 02/28/17 08:38 02/28/17 05:32 02/28/17 08:38 02/28/17 05:32 Plan Activity: advance as tolerated, fall precautions Diet: low cholesterol, low salt Special Instructions: other (drink plenty of water) Follow up with: [facility] [Provider Group] - 7 Days PRIMARY CARE, [Primary Care Provider] - 3-5 Days
--- NOTE | 2017-02-28 20:27 | Treadmill Report ---
NUCLEAR PERFUSION STUDY READING PHYSICIAN: Jimmy Mckeon M.D. REASON FOR STUDY: Chest pain. IMAGING PROTOCOL: The patient received 10 mCi of Technetium 99m Tetrofosmin for resting image and 28 mCi of Technetium 99m Tetrofosmin for stress imaging. The imaging for the whole procedure was completed 30-90 minutes following the initial injection of Technetium 99m tetrofosmin. The SPECT imaging in the 180 degree arc was performed in the right anterior oblique projection. Computerized reconstruction of the images was performed for analysis. IMAGING RESULTS: Normal cavity size from stress to rest. Normal distribution of radionuclide in the anterior, inferior, septal, and apical regions. Gated SPECT, EF greater than 65% with no wall motion abnormality. The patient infused Lexiscan with no EKG changes. SUMMARY: 1. Negative Lexiscan EKG. 2. Normal rest and stress myocardial perfusion scan. No significant stress ischemia. No wall motion abnormality. Gated SPECT, EF greater than 65%. JOB# [id number] WILLIAM/GELA ARREGUIN
== END 2017-02-28 17:00 | disposition home or self-care (01) | DRG 312 ==
LOC: ED 11:31 → 4A 17:55
PROVIDERS: ADMIT Internal Medicine; ATTEND Internal Medicine
DX: I95.1 Orthostatic hypotension (principal); R00.0 Tachycardia, unspecified; F41.9 Anxiety disorder, unspecified; M79.7 Fibromyalgia; Z88.8 Allergy status to other drugs, medicaments and biological substances; Z88.6 Allergy status to analgesic agent; Z93.1 Gastrostomy status
CPT/HCPCS: 36415; 71010; 71275; 78452; 80048; 84439; 84443; 84484; 85025; 93005; 93010; 93017; 93306; 96374; 96375; 99285; A9502; J2270; J2405; J2785; J7040; Q0162; Q9967